=== PATIENT | female | born 1955 | race Caucasian/White ===

== ENCOUNTER 2017-04-10 12:31 | Emergency (ER) | payer OTHER ==
[2017-04-10 12:45] VITALS: BP 145/59; PULSE 74; TEMP 98.2; BMI 36.8
--- NOTE | 2017-04-10 14:07 | PDOC ---
History of Present Illness - General Chief Complaint: Injury Stated Complaint: INJURY Time Seen by Provider: 04/10/17 13:58 History Source: Patient Exam Limitations: No Limitations - History of Present Illness Initial Comments: 04/10/17 14:26 My chief complaint: Fall yesterday left wrist and forearm pain and right knee pain History of present illness: Patient is a 61-year-old female with a history of asthma and hypothyroidism here today after she fell yesterday onto her right knee and with her left hand and arm stretched outward onto the floor while trying to put together a bed frame. Patient reports that she iced her right knee and left wrist forearm. Patient reports having right knee pain anteriorly that is currently a 5 and left lateral and medial wrist tenderness currently a 5 out of 10. Patient also has slight bruising to left medial wrist and distal medial forearm. Patient denies any numbness of her right leg or left arm or hand. Patient denies hitting her head or any other injury. Patient reports taking Excedrin prior to arrival here. 04/10/17 14:29 Occurred: reports: yesterday Severity: reports: moderate Pain Location: reports: lower extremity (right knee, ), upper extremity (left wrist/forearm ) Method of Injury: Yes: fall Modifying Factors: improves with: other (ice ) Loss of Consciousness: no loss of consciousness Associated Symptoms (Fall): other (bruising left medial wrist, forearm medially) Past History - Past Medical History Allergies/Adverse Reactions: Allergies Allergy/AdvReac Type Severity Reaction Status Date / Time azithromycin Allergy Hives Verified 04/10/17 12:38 [From Zithromax Z-Fredo] Penicillins Allergy Verified 04/10/17 12:38 Home Medications: Ambulatory Orders Levothyroxine [Synthroid -] 100 mcg PO DAILY 10/08/13 Naproxen [Naprosyn -] 500 mg PO BID PRN #14 tablet 04/10/17 Asthma: Yes Thyroid Disease: Yes (HYPO) - Surgical History Cholecystectomy: Yes - Immunization History Immunization Up to Date: Yes - Suicide/Smoking/Psychosocial Hx Smoking History: Never smoked Have you smoked in the past 12 months: No Information on smoking cessation initiated: No Hx Alcohol Use: No Drug/Substance Use Hx: No Substance Use Type: None Review of Systems - Review of Systems Able to Perform ROS?: Yes Constitutional: No: Symptoms Reported HEENTM: No: Symptoms Reported Respiratory: No: Symptoms reported Cardiac (ROS): No: Symptoms Reported ABD/GI: No: Symptoms Reported : No: Symptoms Reported Musculoskeletal: Yes: Joint Pain (right knee, left wrist, forearm ), Joint Swelling (minimal left wrist) Integumentary: Yes: Bruising (medial wrist to mid medial forearm ) Neurological: No: Symptoms reported *Physical Exam - Vital Signs Last Vital Signs Temp Pulse Resp BP Pulse Ox 98.2 F 74 16 145/59 98 04/10/17 12:39 04/10/17 12:39 04/10/17 12:39 04/10/17 12:39 04/10/17 12:39 - Physical Exam General Appearance: Yes: Appropriately Dressed Vascular Pulses: Dorsalis-Pedis (R): 4+ Comments:: 04/10/17 14:22 radial pulse 4 + left Musculoskeletal: positive: Normal Inspection. negative: CVA Tenderness, CVA Tenderness (R), CVA Tenderness (L), Decreased Range of Motion, Vertebral Tenderness Extremity: positive: Normal Capillary Refill, Normal Inspection (rt. k), Normal Range of Motion (rt. knee ), Tender (rt. knee, left medial wrist, lateral wrist , distal medial forearm,), Swelling (minimal left wrist ) Integumentary: positive: Bruising (medial left wrist, forearm medial distal ) Neurologic: positive: Normal Response, Motor Strength 5/5 (left wrist, all digits left hand, rt. leg), Respond to painful stimul, Responsive. negative: Numbness, Sensory Deficit Procedures - Consent Consent obtained: From Patient - Splinting Splint Location: Left: Wrist Pre-Proc Neuro Vasc Exam: normal Medical Decision Making - Medical Decision Making 04/10/17 14:29 Patient is a 61-year-old female with a history of asthma and hypothyroidism here today after she fell yesterday onto her right knee and with her left hand and arm stretched outward onto the floor while trying to put together a bed frame. Patient reports that she iced her right knee and left wrist forearm. Patient reports having right knee pain anteriorly that is currently a 5 and left lateral and medial wrist tenderness currently a 5 out of 10. Patient also has slight bruising to left medial wrist and distal medial forearm. Patient denies any numbness of her right leg or left arm or hand. Patient denies hitting her head or any other injury. Patient reports taking Excedrin prior to arrival here. Fall R/O fracture left hand/wrist r/o regina abnormality rt. knee right knee pain left wrist sprain PLAN: xray left wrist no fracture noted, DJD noted xray left forearm no fracture noted xray rt. knee DJD noted no fracture wrist immoblizer 04/10/17 15:10 naprosyn 500 mg bid prn pain # 14 tabs follow up with ortho 04/10/17 15:22 04/10/17 22:45 *DC/Admit/Observation/Transfer Diagnosis at time of Disposition: Fall Qualifiers: Encounter type: initial encounter Qualified Code(s): W19.XXXA - Unspecified fall, initial encounter Knee joint pain Qualifiers: Laterality: right Qualified Code(s): M25.561 - Pain in right knee Sprain of wrist, left Qualifiers: Encounter type: initial encounter Qualified Code(s): S63.502A - Unspecified sprain of left wrist, initial encounter - Discharge Dispostion Disposition: HOME Condition at time of disposition: Stable - Prescriptions Prescriptions: Naproxen [Naprosyn -] 500 mg PO BID PRN #14 tablet PRN Reason: Pain - Referrals Referrals: Alvarado Sherman MD [Primary Care Provider] - Gilbert Malin MD [Staff Physician] - - Patient Instructions Additional Instructions: Continue to ice left wrist and right knee every 2 hours for 20 minutes while awake today Elevate your right leg as much as possible for the next couple of days and rest Keep wrist immobilizer on left wrist during the day may take off at night Follow up with orthopedist for further evaluation within the next few days Return to emergency room if any new symptoms develop or symptoms worsen Patient voiced understanding of discharge instructions and all questions were answered - Post Discharge Activity Forms/Work/School Notes: Back to Work
== END 2017-04-10 15:31 | disposition home or self-care (01) ==
LOC: JERFT 12:31
PROC: 2W3DX1Z Immobilization of Left Lower Arm using Splint (ICD-10-PCS; principal; 2017-04-10)
DX: S63.502A Unspecified sprain of left wrist, initial encounter (principal); M25.561 Pain in right knee; W01.190A Fall on same level from slipping, tripping and stumbling with subsequent striking against furniture, initial encounter; Y93.E9 Activity, other interior property and clothing maintenance; Y92.018 Other place in single-family (private) house as the place of occurrence of the external cause; J45.909 Unspecified asthma, uncomplicated; E03.9 Hypothyroidism, unspecified
CPT/HCPCS: 73090-TC-LT; 73110-TC-LT; 73130-TC-LT; 73562-TC-RT; 99281-25

== ENCOUNTER 2018-04-23 20:56 | Emergency (ER) | payer OTHER ==
[2018-04-23 21:01] VITALS: BP 159/73; PULSE 100; TEMP 98; BMI 35.4
[2018-04-23] MEDS ORDERED: DOXYCYCLINE HYCLATE 100 MG CAPSULE PO ONE ×2 (21:49→21:52)
--- NOTE | 2018-04-23 21:54 | PDOC ---
History of Present Illness - General Chief Complaint: Bite Stated Complaint: BITE BY A TICK Time Seen by Provider: 04/23/18 21:46 - History of Present Illness Initial Comments: 62-year-old female with a past medical history significant for hypothyroidism presents for evaluation after tick bite was first noticed yesterday. She removed the tick she has no associated symptoms. The tick bite was on her mid back 04/23/18 21:51 Past History - Past Medical History Allergies/Adverse Reactions: Allergies Allergy/AdvReac Type Severity Reaction Status Date / Time azithromycin Allergy Hives Verified 04/23/18 21:01 [From Zithromax Z-Fredo] Penicillins Allergy Verified 04/23/18 21:01 Home Medications: Ambulatory Orders Levothyroxine [Synthroid -] 100 mcg PO DAILY 10/08/13 Asthma: Yes COPD: No Thyroid Disease: Yes (HYPO) - Surgical History Cholecystectomy: Yes - Immunization History Immunization Up to Date: Yes - Suicide/Smoking/Psychosocial Hx Smoking History: Never smoked Have you smoked in the past 12 months: No Hx Alcohol Use: No Drug/Substance Use Hx: No Substance Use Type: None Review of Systems - Review of Systems Musculoskeletal: Yes: See HPI, Back Pain All Other Systems: Reviewed and Negative *Physical Exam - Vital Signs Last Vital Signs Temp Pulse Resp BP Pulse Ox 98.0 F 100 H 18 159/73 98 04/23/18 20:59 04/23/18 20:59 04/23/18 20:59 04/23/18 20:59 04/23/18 20:59 - Physical Exam Comments: 04/23/18 21:52 HEAD: NC/AT EYES: Conjuntiva clear NOSE: No d/c MS: Full ROM in all joints without edema NEUROLOGIC: No gross sensory or motor deficits, NVID SKIN: Normal color and temperature of the erythema on the mid back in the area of the tick bite there is no warmth or induration or fluctuance. Medical Decision Making - Medical Decision Making 04/23/18 21:53 Prophylactic dose of doxycycline given *DC/Admit/Observation/Transfer Diagnosis at time of Disposition: Tick bite of back - Discharge Dispostion Disposition: HOME Condition at time of disposition: Stable Decision to Admit order: No - Referrals Referrals: Alvarado Sherman MD [Primary Care Provider] - - Patient Instructions Printed Discharge Instructions: DI for Insect Bites and Stings Additional Instructions: Return to the emergency room should develop any symptoms such as fever or chills night sweats or increasing pain or redness or even draingae about the area of the bite, follow-up with your primary care physician once 2 days for further evaluation and treatment options. - Post Discharge Activity
== END 2018-04-23 21:56 | disposition home or self-care (01) ==
LOC: JERFT 20:56
DX: S20.469A Insect bite (nonvenomous) of unspecified back wall of thorax, initial encounter (principal); W57.XXXA Bitten or stung by nonvenomous insect and other nonvenomous arthropods, initial encounter; Y93.89 Activity, other specified; Y92.018 Other place in single-family (private) house as the place of occurrence of the external cause; Y99.8 Other external cause status; E03.9 Hypothyroidism, unspecified
CPT/HCPCS: 99281-25

== ENCOUNTER 2019-08-25 19:34 | Emergency (ER) | payer OTHER ==
[2019-08-25 19:46] VITALS: BP 154/76; PULSE 80; TEMP 98.8; BMI 36.6
[2019-08-25] MEDS ORDERED: predniSONE 20 MG TABLET (UD) PO ONE (19:58)
[2019-08-25] MEDS: ALBUTEROL SO4 2.5/IPRATROPIUM 0.5 INH SOL 3 ML VIAL.NEB. NEB SCH ×4 (20:00→21:29)
[2019-08-25] MEDS ORDERED: predniSONE 20 MG TABLET (UD) ONE (20:01)
[2019-08-25] MEDS ORDERED: ALBUTEROL SO4 2.5/IPRATROPIUM 0.5 INH SOL 3 ML VIAL.NEB. NEB ONE (20:01)
--- NOTE | 2019-08-25 20:02 | PDOC ---
History of Present Illness - General Chief Complaint: Asthma Stated Complaint: ASTHMA Time Seen by Provider: 08/25/19 19:51 History Source: Patient Exam Limitations: No Limitations - History of Present Illness Initial Comments: 08/25/19 19:59 Patient is a 63-year-old female who presents to the ED with complaint of her asthma bothering her for the last 3 to 4 days. She states she was at work and somebody was using a diffuser with lavender and it irritated her asthma. She states she does not even have an albuterol inhaler at home as her asthma has not given her any problems in a long while. She has Symbicort which has not been helping. She denies any fevers or chills. She denies any URI symptoms. She does have a cough which is dry. Past History - Past Medical History Allergies/Adverse Reactions: Allergies Allergy/AdvReac Type Severity Reaction Status Date / Time azithromycin Allergy Hives Verified 08/25/19 19:46 [From Zithromax Z-Fredo] Penicillins Allergy Verified 08/25/19 19:46 Home Medications: Ambulatory Orders Levothyroxine [Synthroid -] 100 mcg PO DAILY 10/08/13 Albuterol 0.083% Nebulizer Alisha [Ventolin 0.083% Nebulizer Soln -] 1 neb NEB Q4H PRN #60 vial 08/25/19 Albuterol Sulfate [Albuterol Sulfate Hfa] 2 puff IH Q4H PRN #1 hfa.aer.ad predniSONE [Deltasone -] 60 mg PO DAILY #12 tablet 08/25/19 Asthma: Yes COPD: No Thyroid Disease: Yes (HYPO) - Surgical History Cholecystectomy: Yes - Immunization History Immunization Up to Date: Yes - Psycho Social/Smoking Cessation Hx Smoking History: Never smoked Have you smoked in the past 12 months: No Hx Alcohol Use: No Drug/Substance Use Hx: No Substance Use Type: None Review of Systems - Review of Systems Comments:: 08/25/19 19:59 - Review of Systems Able to Perform ROS?: Yes Constitutional: No: Fever, Chills, Loss of Appetite, Night Sweats, Weakness HEENTM: No: Eye Pain, Vision changes, Ear Pain, Throat Pain, Throat Swelling, Mouth Pain, Difficulty Swallowing Respiratory: No: sputum production; Positive: dry cough, wheezing, shortness of breath Cardiac (ROS): No: Chest Pain, Chest Tightness, Palpitations, Irregular Heart Beat, Edema ABD/GI: No: Nausea, Vomiting, Abdominal Pain, Diarrhea : No Dysuria, No Hematuria, No Frequency, No Urgency Musculoskeletal: No: Muscle Pain, Back Pain, Joint Pain, Muscle Weakness, Neck Pain Integumentary: No: Lesions, Rash Neurological: No: Headache, Numbness, Tingling, Weakness, Speech Difficulties *Physical Exam - Vital Signs Last Vital Signs Temp Pulse Resp BP Pulse Ox 98.8 F 80 18 154/76 95 08/25/19 19:41 08/25/19 19:41 08/25/19 19:41 08/25/19 19:41 08/25/19 19:41 - Physical Exam 08/25/19 20:00 - Physical Exam General Appearance: Nourished, Appropriately Dressed, No Distress, speaking in short sentences HEENT: EOMI, Normal Voice, No Muffled/Hoarse voice, No Nasal Congestion, No Rhinorrhea, Hearing Grossly Normal Neck: Supple, No Lymphadenopathy (R), No Lymphadenopathy (L), No Rigidity, No Decreased range of motion Respiratory/Chest: Diffuse rhonchi and wheezes appreciated bilaterally. No retractions appreciated. Patient speaking in short sentences. Dry cough appreciated during exam. Cardiovascular: Regular Rhythm, Regular Rate, S1, S2 Gastrointestinal/Abdominal: Normal Bowel Sounds, Soft. Non-tender, No Guarding , No Rebound, No Rigidity Musculoskeletal: Normal Inspection. No Decreased Range of Motion Extremity: Normal Capillary Refill, Normal Inspection Integumentary: Normal Color, Dry. No Rash Neurologic: instructional support services director II-XII NML intact, Fully Oriented, Alert, Normal Mood/Affect, Normal Response Medical Decision Making - Medical Decision Making 08/25/19 20:02 Assessment: Patient is a 63-year-old female with an acute asthma exacerbation. Plan: -DuoNebs x4 every 15 minutes -Prednisone 60 mg p.o. -Will reassess 08/25/19 20:39 Patient is already beginning to feel much better. She continues to have cough in the ED. She continues to have diffuse rhonchi and scattered wheezes but they seem to be improving. The patient states that she is feeling jittery and would like to hold off for a little while for another albuterol treatment. 08/25/19 21:28 The patient's rhonchi have almost completely resolved. She now has diffuse audible wheezes on the left side. She has 1 more nebulizer treatment which she will get at this time. 08/25/19 22:01 Patient's wheezes have essentially resolved except a few scattered wheezes. She states she is feeling much better and feels as if she can breathe now. Her rhonchi are intermittent and scattered and after asking the patient to cough forcefully, the rhonchi decreased. The patient has been offered further evaluation and treatment with possible admission but she is stating she feels much better. She would prefer to follow-up with her primary doctor tomorrow. As the patient is feeling much better and her wheezing has decreased as has her rhonchi, we will discharge her. She has been given strict return precautions. She understands and agrees with this treatment plan. A prescription for albuterol MDI and albuterol for her nebulizer machine have been sent to her pharmacy. The patient is stable for discharge. Discharge - Discharge Information Problems reviewed: Yes Clinical Impression/Diagnosis: Asthma with acute exacerbation Qualifiers: Asthma severity: mild Asthma persistence: intermittent Qualified Code(s): J45.21 - Mild intermittent asthma with (acute) exacerbation Condition: Stable Disposition: HOME - Additional Discharge Information Prescriptions: Albuterol 0.083% Nebulizer Alisha [Ventolin 0.083% Nebulizer Soln -] 1 neb NEB Q4H PRN #60 vial PRN Reason: Wheezing Albuterol Sulfate [Albuterol Sulfate Hfa] 2 puff IH Q4H PRN #1 hfa.aer.ad PRN Reason: Wheezing predniSONE [Deltasone -] 60 mg PO DAILY #12 tablet - Follow up/Referral - Patient Discharge Instructions Patient Printed Discharge Instructions: DI for Asthma -- Adult Additional Instructions: Use the albuterol inhaler every 4-6 hours as needed for wheezing. You can also use the nebulizer with albuterol instead. Take the prednisone as prescribed and start tomorrow on 08/26/2019. Be sure to follow-up with your primary doctor within 1 day for repeat evaluation. If you begin to have any worsening symptoms such as increased cough, high fevers, profuse vomiting or any worsening shortness of breath return to the ED immediately. - Post Discharge Activity Work/Back to School Note: Back to Work
== END 2019-08-25 22:12 | disposition home or self-care (01) ==
LOC: JERFT 19:34 → JER 19:34 → JERFT 22:12
PROC: 3E0F7GC Introduction of Other Therapeutic Substance into Respiratory Tract, Via Natural or Artificial Opening (ICD-10-PCS; principal; 2019-08-25)
DX: J45.21 Mild intermittent asthma with (acute) exacerbation (principal); E03.9 Hypothyroidism, unspecified; Z88.0 Allergy status to penicillin; Z88.1 Allergy status to other antibiotic agents
CPT/HCPCS: 99283-25

== ENCOUNTER 2019-09-04 10:31 | Day surgery (SDC) | payer OTHER ==
[2019-08-28 11:47] VITALS: BMI 36.1
[2019-09-04 17:20] VITALS: TEMP 98.2
[2019-09-04 18:35] VITALS: BP 114/75; PULSE 75
--- NOTE | 2019-09-06 16:52 | PATH ---
Surgical Pathology Report Patient Name: AMADA OWENS [facility]. Rec. #: [id number] /Age/Gender: 1955 (Age: 63) / F Account: [id number] Location: [facility] Taken: 09/04/2019 Received: 09/04/2019 Reported: 09/06/2019 Physicians: Buffy Tidwell M.D. Specimen(s) Received A: SECOND PORTION DUODENUM B: ANTRUM C: GASTRIC BODY POLYP D: GE JUNCTION Clinical History Dyspepsia Postoperative diagnosis: Gastritis, gastric body polyp Final Diagnosis A. SECOND PORTION OF DUODENUM, BIOPSY: DUODENAL MUCOSA WITH NO SIGNIFICANT PATHOLOGIC CHANGE. NO HISTOLOGIC EVIDENCE OF INTRAEPITHELIAL LYMPHOCYTOSIS. B. GASTRIC ANTRUM, BIOPSY: GASTRIC MUCOSA WITH CHRONIC GASTRITIS. IMMUNOSTAIN FOR H. PYLORI IS NEGATIVE. NEGATIVE FOR INTESTINAL METAPLASIA. C. GASTRIC BODY POLYP, BIOPSY: GASTRIC MUCOSA WITH CHRONIC GASTRITIS AND FOCAL FOVEOLAR HYPERPLASIA. IMMUNOSTAIN FOR H. PYLORI IS NEGATIVE. NEGATIVE FOR INTESTINAL METAPLASIA. D. GE JUNCTION, BIOPSY: GASTRIC MUCOSA WITH MILD CHRONIC INFLAMMATION. NEGATIVE FOR INTESTINAL METAPLASIA. NO SQUAMOUS EPITHELIUM PRESENT. Electronically Signed Fredi Aguilera M.D. Gross Description A. Received in formalin, labeled "biopsy second portion of duodenum" is a jenkins, irregular portion of soft tissue measuring 0.6 cm. in greatest dimension. The specimen is submitted in toto in one cassette. B. Received in formalin, labeled "biopsy gastric antrum" is a jenkins, irregular portion of soft tissue measuring 0.4 cm. in greatest dimension. The specimen is submitted in toto in one cassette. C. Received in formalin, labeled "biopsy gastric body polyp" is a jenkins, irregular portion of soft tissue measuring 0.3 cm. in greatest dimension. The specimen is submitted in toto in one cassette. D. Received in formalin, labeled "biopsy GE junction" is a jenkins, irregular portion of soft tissue measuring 0.3 cm. in greatest dimension. The specimen is submitted in toto in one cassette. 09/05/2019 [facility]09/05/2019
== END 2019-09-04 14:00 | disposition home or self-care (01) ==
LOC: FASU-ENDO 10:31
PROVIDERS: ATTEND Internal Medicine Gastroenterology
PROC: 0DB68ZX Excision of Stomach, Via Natural or Artificial Opening Endoscopic, Diagnostic (ICD-10-PCS; 2019-09-04)
PROC: 0DB48ZX Excision of Esophagogastric Junction, Via Natural or Artificial Opening Endoscopic, Diagnostic (ICD-10-PCS; 2019-09-04)
PROC: 0DB98ZX Excision of Duodenum, Via Natural or Artificial Opening Endoscopic, Diagnostic (ICD-10-PCS; principal; 2019-09-04 12:24)
DX: K29.50 Unspecified chronic gastritis without bleeding (principal); K20.9 Esophagitis, unspecified; K31.7 Polyp of stomach and duodenum; R10.13 Epigastric pain
CPT/HCPCS: 82962; 88305-TC; 88342-TC

== ENCOUNTER 2020-02-05 09:39 | Day surgery (SDC) | payer OTHER ==
[2020-01-29 11:17] VITALS: BMI 34.9
[2020-02-05 11:22] VITALS: TEMP 98
[2020-02-05 11:49] VITALS: BP 125/75; PULSE 69
--- NOTE | 2020-02-07 17:23 | PATH ---
Surgical Pathology Report Patient Name: AMADA OWENS [facility]. Rec. #: [id number] /Age/Gender: 1955 (Age: 64) / F Account: [id number] Location: [facility] Taken: 02/05/2020 Received: 02/05/2020 Reported: 02/07/2020 Physicians: Buffy Tidwell M.D. Specimen(s) Received POLYP RECTUM Clinical History History polyps Postoperative diagnosis: Colon polyps, diverticulosis, hemorrhoids Final Diagnosis RECTUM, POLYP, BIOPSY: TUBULAR ADENOMA. Electronically Signed Buffy Landeros M.D. Gross Description Received in formalin, labeled "polyp rectum" are 2 jenkins, irregular portions of soft tissue measuring 0.3 cm. in greatest dimension. The specimens are submitted in toto in one cassette. [facility]/02/06/2020 [facility]/02/06/2020
== END 2020-02-05 11:50 | disposition home or self-care (01) ==
LOC: FASU-ENDO 09:39
PROVIDERS: ATTEND Internal Medicine Gastroenterology
PROC: 0DBP8ZX Excision of Rectum, Via Natural or Artificial Opening Endoscopic, Diagnostic (ICD-10-PCS; principal; 2020-02-05 10:52)
DX: Z86.010 Personal history of colon polyps (principal); D12.8 Benign neoplasm of rectum; K64.1 Second degree hemorrhoids; K57.30 Diverticulosis of large intestine without perforation or abscess without bleeding
CPT/HCPCS: 82962; 88305-TC

== ENCOUNTER 2024-03-20 17:01 | Emergency (ER) | payer OTHER ==
[2024-03-20 17:14] VITALS: BP 125/79; PULSE 87; RESP 18; TEMP 98.6; BMI 35.0
[2024-03-20] MEDS ORDERED: predniSONE 20 MG TABLET (UD) ONE (17:46)
[2024-03-20] MEDS: predniSONE 20 MG TABLET (UD) PO ONE (17:47)
== END 2024-03-20 17:59 | disposition home or self-care (01) ==
LOC: JERFT 17:01
DX: T63.441A Toxic effect of venom of bees, accidental (unintentional), initial encounter (principal); M79.89 Other specified soft tissue disorders
CPT/HCPCS: 99283-25